=== PATIENT | female | born 1985 | race Caucasian/White ===

== ENCOUNTER 2021-02-12 22:54 | Emergency (ER) | payer BC ==
[~2021-02-12] VITALS: Ht 170.2 cm; Wt 90.7 kg
[2021-02-12] MEDS ORDERED: FLEXERIL PO (23:24)
[2021-02-12] MEDS ORDERED: NEURONTIN100 MG PO (23:25)
[2021-02-12] MEDS ORDERED: OLMESARTAN MEDO20 MG PO (23:28)
[2021-02-13] MEDS ORDERED: AUGMENTIN 500-1 EACH PO (01:17)
[2021-02-13 01:28] VITALS: BP 128/72
== END 2021-02-13 01:29 | disposition home or self-care (01) ==
LOC: M.ERS 22:54
DX: L02.415 Cutaneous abscess of right lower limb (principal); L03.115 Cellulitis of right lower limb; I10 Essential (primary) hypertension; Z79.899 Other long term (current) drug therapy